=== PATIENT | male | born 1950 | race Caucasian/White ===

== ENCOUNTER 2017-06-17 08:13 | Emergency (ER) | payer MEDICARE, BC ==
[2017-06-17 08:29] VITALS: BP 141/82
--- NOTE | 2017-06-17 09:34 | EDM.PDOC ---
ED HPI GENERAL MEDICAL PROBLEM - General Chief Complaint: Lower Extremity Injury/Pain Stated Complaint: LEFT LEG PAIN Time Seen by Provider: 06/17/17 09:29 Source of Information: Reports: Patient History Limitations: Reports: No Limitations - History of Present Illness INITIAL COMMENTS - FREE TEXT/NARRATIVE: 66-year-old male presents to the ED with left calf pain. Patient states about 6 0630 hrs. yesterday morning while he was getting ready to go to work and walking out in his garage she developed sudden onset of severe pain left calf area. Pain is persistent since that time and is actually worsened by dorsiflexion of the foot or walking. He's barely able to walk up a stair because of the severity of the pain. Currently walking with the aid of one crutch. Denies any shortness of breath. No history of DVT in the past. Patient states that the leg and foot is not really swollen at all since the time of onset of pain. Onset: Sudden Onset Date: 06/16/17 Onset Time: 06:30 Duration: Day(s): Location: Reports: Lower Extremity, Left (Left calf primarily in the mid aspect. ) Quality: Reports: Ache, Burning, Other Severity: Moderate (Worsened by walking) Improves with: Reports: Rest Worsens with: Reports: Movement (Walking or dorsiflexing the ankle.) Context: Reports: Activity. 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: Reports: NSAIDS left calf Pain Score (Numeric/FACES): 2 - Related Data Allergies Allergy/AdvReac Type Severity Reaction Status Date / Time celecoxib [From Celebrex] Allergy unknown Verified 06/17/17 08:29 morphine Allergy unknown Verified 06/17/17 08:29 valdecoxib [From Bextra] Allergy unknown Verified 06/17/17 08:29 anesthetics Allergy unknown Uncoded 06/17/17 08:29 Home Meds: Home Meds Aspirin [Ecotrin] 81 mg PO DAILY 06/17/17 [History] Fluticasone/Salmeterol [Advair 250-50 Diskus] 1 each IH DAILY 06/17/17 [History] Hydrochlorothiazide [Hydrochlorothiazide] 12.5 mg PO DAILY 06/17/17 [History] Pantoprazole Sodium [Protonix] 40 mg PO DAILY 06/17/17 [History] Pramipexole [Mirapex] 0.25 mg PO BEDTIME 06/17/17 [History] Sertraline [Zoloft] 50 mg PO DAILY 06/17/17 [History] Simvastatin [Zocor] 80 mg PO BEDTIME 06/17/17 [History] Tamsulosin HCl [Flomax] 0.4 mg PO DAILY 06/17/17 [History] Past Medical History HEENT History: Reports: Hard of Hearing, Impaired Vision Cardiovascular History: Reports: High Cholesterol, Hypertension, [place] Genitourinary History: Reports: BPH, Prostate Disorder Psychiatric History: Reports: Depression - Past Surgical History Musculoskeletal Surgical History: Reports: Shoulder Surgery Social & Family History - Family History Family Medical History: Noncontributory - Tobacco Use Smoking Status *Q: Never Smoker Second Hand Smoke Exposure: No - Caffeine Use Caffeine Use: Reports: Coffee - Recreational Drug Use Recreational Drug Use: No - Living Situation & Occupation Living situation: Reports: Occupation: Employed Review of Systems - Review of Systems Review Of Systems: See Below Constitutional: Reports: No Symptoms Eyes: Reports: No Symptoms Ears: Reports: No Symptoms Nose: Reports: No Symptoms Mouth/Throat: Reports: No Symptoms Respiratory: Reports: No Symptoms Cardiovascular: Reports: No Symptoms GI/Abdominal: Reports: No Symptoms Genitourinary: Reports: No Symptoms Musculoskeletal: Reports: Other (Acute onset of left calf pain 24 hours ago.) Skin: Reports: No Symptoms Neurological: Reports: No Symptoms Psychiatric: Reports: No Symptoms ED EXAM, GENERAL - Physical Exam Exam: See Below Exam Limited By: No Limitations General Appearance: Alert, WD/WN, No Apparent Distress Eye Exam: Right Eye: Papilledema, Bilateral Eye: Normal Inspection Throat/Mouth: Normal Inspection, Normal Lips, Normal Teeth, Normal Oropharynx Head: Atraumatic, Normocephalic Neck: Normal Inspection, Supple, Non-Tender, Full Range of Motion Respiratory/Chest: No Respiratory Distress, Lungs Clear, Normal Breath Sounds, No Accessory Muscle Use, Chest Non-Tender Peripheral Pulses: 2+: Posterior Tibial (L), Posterior Tibial (R), Dorsalis Pedis (L), Dorsalis Pedis (R) GI/Abdominal: Normal Bowel Sounds, Soft, Non-Tender, No Organomegaly, No Distention Extremities: Other (Examination of the left lower extremity shows no dependent edema or swelling. Good dorsalis pedis pulse. Previous trauma to the dorsal foot appreciated with pinning of the third and fourth metatarsals and skin wound that is healed by secondary intention dorsal foot. He does have pain on dorsiflexion of the foot in the calf area. On palpation he has pain at the insertion of the medial gastrocnemius muscle and soleus muscle beginning of the Achilles tendon Pain is only present upon deep palpation in this area. ) Course - Vital Signs Last Recorded V/S: Last Vital Signs Temp 36.7 C 06/17/17 08:23 Pulse 78 06/17/17 08:23 Resp 18 06/17/17 08:23 BP 141/82 H 06/17/17 08:23 Pulse Ox 100 06/17/17 08:23 - Orders/Labs/Meds Labs: Laboratory Tests 06/17/17 Range/Units 09:28 D-Dimer, Quantitative 0.41 (0.19-0.59) mg/L - Radiology Interpretation Free Text/Narrative:: 58-year-old male presents to the ED with acute onset of left calf pain that is persisted since onset at 0630 hrs. yesterday morning. Patient is using a crutch to walk because of severe pain with walking or dorsiflexion of the ankle. On examination there is no edema of the leg to suggest DVT. However he is in the midline of the calf. I suspect he has a partial tear of the juncture of the medial gastrocnemius and soleus muscle posterior calf. However d-dimer and an doppler ultrasound of the extremity will be performed. - Re-Assessments/Exams Free Text/Narrative Re-Assessment/Exam: 06/17/17 11:03 Doppler ultrasound of the left lower extremity did not identify any evidence of deep venous thrombosis. D-dimer also returned in the normal range at 0.41. Therefore injuries appear to be musculoskeletal in origin with partial tear of the medial gastrocnemius muscle were joins onto the soleus muscle in the posterior calf. Therefore it is essentially time to heal as treatment. Elevate ice pack today one half hour to every 4 hours. Then start to put heat pack on the area tomorrow. For about one half hour out of every 4 hours. Just Aleve 2 tablets every 8 hours to relieve pain and inflammation until better. May continue to use the crutch for support of ambulation until area is feeling better. Departure - Departure Time of Disposition: 11:10 Disposition: Home, Self-Care 01 Condition: Fair Clinical Impression: Strain of gastrocnemius muscle of left lower extremity Qualifiers: Encounter type: initial encounter Qualified Code(s): S86.112A - Strain of other muscle(s) and tendon(s) of posterior muscle group at lower leg level, left leg, initial encounter - Discharge Information Instructions: Muscle Strain, [id number] Referrals: Lestre Heath MD [Primary Care Provider] - Forms: ED Department Discharge, ED Return to Work/School Form Additional Instructions: Evaluation in the emergency room today in regards to acute onset of left calf pain yesterday morning shortly after getting up for the day. Pain is persisted and making walking without a aid very difficult. Examination shows no swelling of the lower extremity to suggest a DVT. Pain is well localized to the medial belly of the gastrocnemius muscle were joins onto the soleus muscle and forms the Achilles tendon and the back of your calf. Her son was done and confirmed that there was no evidence of blood clot within the leg and similarly blood testing proved to be negative for any blood clot in the leg. It appears that this is a muscular strain and part of the muscle has pulled away from were joins onto the soleus muscle and is causing pain and localized swelling. Treatment is time to heal. Continue Gatorade as needed. Suggest Aleve 2 tablets every 8 hours for relief of pain and inflammation. Take the Aleve with food. Will give you a note to excuse her from the workplace today and tentatively will be able to return on Wednesday or Wednesday next week. As discussed ice pack to the area for one half hour every 4 hours today and then may use heat in the same fashion to the area tomorrow and the next day. His usually take about 7-10 days to resolve.
--- NOTE | 2017-06-17 12:00 | US ---
Left lower extremity deep venous ultrasound: Duplex and color flow imaging was obtained of the left common femoral, proximal greater saphenous, superficial femoral, popliteal, posterior tibial and peroneal veins. Right common femoral vein also was evaluated. Findings: Normal phasic flow, augmentation and compression are seen. No ultrasound abnormality is seen within the posterior calf. Impression: 1. No evidence of deep venous thrombosis seen within the left lower extremity or within the right common femoral vein. 2. No ultrasound finding is seen within the posterior calf. Diagnostic code #1
== END 2017-06-17 11:20 | disposition home or self-care (01) ==
LOC: JD.ED 08:13
DX: S86.112A Strain of other muscle(s) and tendon(s) of posterior muscle group at lower leg level, left leg, initial encounter (principal); I10 Essential (primary) hypertension; E78.00 Pure hypercholesterolemia, unspecified; F32.9 Major depressive disorder, single episode, unspecified; Z79.82 Long term (current) use of aspirin; Z79.899 Other long term (current) drug therapy; Z88.5 Allergy status to narcotic agent; Z88.6 Allergy status to analgesic agent; Z88.8 Allergy status to other drugs, medicaments and biological substances; X58.XXXA Exposure to other specified factors, initial encounter; Y92.015 Private garage of single-family (private) house as the place of occurrence of the external cause; Y93.01 Activity, walking, marching and hiking
CPT/HCPCS: 36415; 85379; 93971-26-LT; 93971-LT; 99282; 99284-25

== ENCOUNTER 2017-07-05 08:02 | Day surgery (SDC) | payer MEDICARE, BC ==
[~2017-07-05 08:02] MED LIST: Lactated Ringers 1,000 ML IV SCH; Lidocaine 1%/Sod Bicarbonate in NS 8.4% 1 ML Syringe IV PRN; Sodium Chloride 0.9% 10 ML Syringe FLUSH PRN
--- NOTE | 2017-07-05 09:06 | PCM.PREANE ---
Preanesthetic Assessment - Anesthesia/Transfusion/Family Hx Anesthesia History: Prior Anesthesia Reaction (nausea) Family History of Anesthesia Reaction: No Transfusion History: Prior Transfusion Without Reaction - Review of Systems General: No Symptoms Pulmonary: No Symptoms Cardiovascular: No Symptoms Gastrointestinal: No Symptoms Neurological: Numbness (toes) Other: Reports: Easy Bleeding, Easy Bruising - Physical Assessment NPO Status Date: 07/04/17 NPO Status Time: 01:00 Pulse: 64 O2 Sat by Pulse Oximetry: 96 Respiratory Rate: 16 Blood Pressure: 120/78 Temperature: 36.8 C Vital Signs: Last Vital Signs Temp 36.8 C 07/05/17 08:34 Pulse 64 07/05/17 08:34 Resp 16 07/05/17 08:34 BP 120/78 07/05/17 08:34 Pulse Ox 96 07/05/17 08:34 Height: 1.73 m Weight: 73.346 kg ASA Class: 3 Mental Status: Alert & Oriented x3 Airway Class: Mallampati = 2 Dentition: Reports: Normal Dentition, [place](s) Thyro-Mental Finger Breadths: 2 Mouth Opening Finger Breadths: 2 ROM/Head Extension: Full Lungs: Clear to Auscultation, Normal Respiratory Effort Cardiovascular: Regular Rate, Regular Rhythm - Lab Values: on chart - Imaging/EKG Impressions: Sinus Jun on chart - Allergies Allergies/Adverse Reactions: Allergies Allergy/AdvReac Type Severity Reaction Status Date / Time celecoxib [From Celebrex] Allergy unknown Verified 06/17/17 08:29 morphine Allergy unknown Verified 06/17/17 08:29 valdecoxib [From Bextra] Allergy unknown Verified 06/17/17 08:29 anesthetics Allergy unknown Uncoded 06/17/17 08:29 - Acknowledgements Anesthesia Type Planned: MAC Pt an Appropriate Candidate for the Planned Anesthesia: Yes Alternatives and Risks of Anesthesia Discussed w Pt/Guardian: Yes Pt/Guardian Understands and Agrees with Anesthesia Plan: Yes PreAnesthesia Questionnaire HEENT History: Reports: Hard of Hearing, Impaired Vision Other HEENT History: tinnitus, pterygium uvulophanynegealpoasty, tmj surgery Cardiovascular History: Reports: High Cholesterol, Hypertension, [place] ("four years ago with a stent") Other Cardiovascular History: heart cath sten, arteriosclerotic heart disease Respiratory History: Reports: Sleep Apnea Gastrointestinal History: Reports: Gastritis, GERD Other Gastrointestinal History: gastritic ulcers, haiatal hernia, dysphagia, constipation epigastic paink abdominal pain gallstoone, hep c, colonoscopy, egd , gastrectomy Genitourinary History: Reports: BPH, Prostate Disorder Other Genitourinary History: prostate issues causing bladder trouble. Psychiatric History: Reports: Depression Other Psychiatric History: fatique Other Endocrine/Metabolic History: cholinsetrsanse deficiency Other Hematologic History: bruises easily - Past Surgical History Cardiovascular Surgical History: Reports: Coronary Artery Stent Other Musculoskeletal Surgeries/Procedures:: rt femur fx, left shulder bony spur excison, foot surgery left knee meniscus repair, ulnar nerve transpostion, trigger finger release. - SUBSTANCE USE Smoking Status *Q: Never Smoker Second Hand Smoke Exposure: No Days Per Week of Alcohol Use: 1 Number of Drinks Per Day: 0 Total Drinks Per Week: 0 Recreational Drug Use History: No - HOME MEDS Home Medications: Home Meds Aspirin [Ecotrin] 81 mg PO DAILY 06/17/17 [History] Fluticasone/Salmeterol [Advair 250-50 Diskus] 1 each IH DAILY 06/17/17 [History] Hydrochlorothiazide [Hydrochlorothiazide] 12.5 mg PO DAILY 06/17/17 [History] Pantoprazole Sodium [Protonix] 40 mg PO DAILY 06/17/17 [History] Pramipexole [Mirapex] 0.25 mg PO BEDTIME 06/17/17 [History] Sertraline [Zoloft] 50 mg PO DAILY 06/17/17 [History] Simvastatin [Zocor] 80 mg PO BEDTIME 06/17/17 [History] Tamsulosin HCl [Flomax] 0.4 mg PO DAILY 06/17/17 [History] - CURRENT (IN HOUSE) MEDS Current Meds: Current Medications Lactated Ringer's (Ringers, Lactated) 1,000 mls @ 125 mls/hr IV ASDIRECTED SAHRA Stop: 07/05/17 23:00 Lidocaine/Sodium Bicarbonate (Buffered Lidocaine 1% In Ns 8.4%) 0.25 ml IV ONETIME PRN PRN Reason: Prior to IV Start Stop: 07/05/17 18:00 Sodium Chloride (Saline Flush) 10 ml FLUSH ASDIRECTED PRN PRN Reason: Keep Vein Open Stop: 07/05/17 18:00
[2017-07-05] MEDS ORDERED: Propofol 200 MG/20 ML SDV ONE ×2 (09:11→10:22)
[2017-07-05] MEDS ORDERED: Lidocaine 1% 4 ML ONE (09:14)
[2017-07-05] MEDS ORDERED: Lactated Ringers 1,000 ML ONE (10:05)
--- NOTE | 2017-07-05 10:44 | PCM.OPNOTE ---
- General Post-Op/Procedure Note Date of Surgery/Procedure: 07/05/17 Operative Procedure(s): egd with bx and colonosocopy to transverse colon Pre Op Diagnosis: GERd/change in bowel habits Post-Op Diagnosis: Same Anesthesia Technique: MAC Primary Surgeon: Sanjay Bush EBL in mLs: 0 Complications: None Condition: Good
[2017-07-05 10:48] VITALS: BP 138/92
--- NOTE | 2017-07-05 10:52 | PCM48HPAN ---
Post Anesthesia Note - EVALUATION WITHIN 48HRS OF ANESTHETIC Vital Signs in Normal Range: Yes Patient Participated in Evaluation: Yes Respiratory Function Stable: Yes Airway Patent: Yes Cardiovascular Function Stable: Yes Hydration Status Stable: Yes Pain Control Satisfactory: Yes Nausea and Vomiting Control Satisfactory: Yes Mental Status Recovered: Yes
--- NOTE | 2017-07-06 12:22 | OR ---
DATE OF OPERATION: 07/05/2017 SURGEON: Sanjay Bush MD PREOPERATIVE DIAGNOSIS: Change in bowel habits. POSTOPERATIVE DIAGNOSIS: Change in bowel habits. OPERATION PERFORMED: Colonoscopy of the transverse colon. FINDINGS: Incomplete prep with stool making it inadvisable to advance further. Unable to irrigate or suck out the stool particles at this level. Did not show any angiodysplasias, neoplasias, or large tumor masses or ulcerations in the transverse colon, descending colon, sigmoid colon, and rectum. ANESTHESIA: IV sedation. DESCRIPTION OF PROCEDURE: The patient was taken to the operating room, placed in the supine position having been connected to monitoring equipment, now having undergone upper GI endoscopy, the IV sedation continued for colonoscopy. The patient was placed in left lateral position. Perianal area was inspected, it was normal. Rectal exam showed good sphincter tone. A video Olympus colonoscope was then introduced into the rectum and threaded up without problem to the transverse colon until fecal matter was encountered. Attempts to irrigate and suck this out were unsuccessful, and advancement of the scope was stopped at this point and then slowly withdrawn showing the transverse colon, descending colon, sigmoid colon, and rectum. The patient tolerated the procedure and was sent to the recovery room in a stable condition and will be followed up in the clinic. ESTIMATED BLOOD LOSS: MMODAL /[id number]
--- NOTE | 2017-07-08 07:58 | OR ---
DATE OF OPERATION: 07/05/2017 SURGEON: Sanjay Bush MD PREOPERATIVE DIAGNOSIS: Gastroesophageal reflux disease. POSTOPERATIVE DIAGNOSIS: Gastroesophageal reflux disease. OPERATION PERFORMED: EGD with biopsy. ANESTHESIA: IV sedation. FINDINGS: Upper GI endoscopy demonstrating the gastric pouch with a gastrojejunostomy. The 2 limbs of the jejunostomy are widely open and patent. The gastric pouch looks unremarkable. There is free reflux from the jejunum into the stomach. 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 GE junction did not show any acute pathology. Biopsies were taken of this. There were some petechiae in the upper esophagus, and biopsies were taken of the proximal esophagus at 30 cm and then at 20 cm. DESCRIPTION OF PROCEDURE: The patient was taken to the endoscopy room, placed in a supine position, connected to monitoring equipment, given IV sedation, and placed in the left lateral position. A bite block was inserted, and video Olympus gastroscope placed in the posterior oropharynx. Under direct vision, threaded past the cricopharyngeus down the esophagus into the gastric pouch which was viewed and was biopsied. The scope passed into both limbs of the gastrojejunostomy and then a J-maneuver was performed. The scope was withdrawn. The GE junction which was biopsied did not show any acute pathology. The proximal esophagus showed some petechiae, and this was biopsied at 30 and then at 20 cm. The patient tolerated the procedure and IV sedation continued for colonoscopy. ESTIMATED BLOOD LOSS: MMODAL /[id number]
== END 2017-07-05 11:45 | disposition home or self-care (01) ==
LOC: JD.SDS 08:02
PROVIDERS: ATTEND Surgery
DX: K21.9 Gastro-esophageal reflux disease without esophagitis (principal); K59.00 Constipation, unspecified; R10.13 Epigastric pain; R10.11 Right upper quadrant pain; R63.4 Abnormal weight loss; B18.2 Chronic viral hepatitis C; E78.00 Pure hypercholesterolemia, unspecified; I10 Essential (primary) hypertension; I25.10 Atherosclerotic heart disease of native coronary artery without angina pectoris; G47.30 Sleep apnea, unspecified; N40.0 Benign prostatic hyperplasia without lower urinary tract symptoms; F32.9 Major depressive disorder, single episode, unspecified; H93.19 Tinnitus, unspecified ear; Z83.71 Family history of colonic polyps; Z79.82 Long term (current) use of aspirin; Z79.899 Other long term (current) drug therapy; Z88.4 Allergy status to anesthetic agent; Z88.5 Allergy status to narcotic agent; Z88.8 Allergy status to other drugs, medicaments and biological substances; Z90.3 Acquired absence of stomach [part of]; Z95.818 Presence of other cardiac implants and grafts; Z98.890 Other specified postprocedural states; Z99.89 Dependence on other enabling machines and devices
CPT/HCPCS: 45378; J7120; 00810; 88305; J2704

== ENCOUNTER 2020-10-23 13:21 | Emergency (ER) | payer MEDICARE, BC ==
--- NOTE | 2020-10-23 14:03 | EDM.PDOC ---
ED HPI GENERAL MEDICAL PROBLEM - General Chief Complaint: Chest Pain Stated Complaint: SOB/LIGHTHEADED Time Seen by Provider: 10/23/20 13:59 Source of Information: Reports: Patient History Limitations: Reports: No Limitations - History of Present Illness INITIAL COMMENTS - FREE TEXT/NARRATIVE: 70-year-old male presents to the ED for evaluation of intermittent chest pressure discomfort radiating from the left precordium to occasionally the right precordium and central chest. He appreciates this is worse on exertion. Patient has known history of coronary disease with a myocardial infarction approximately 6 to 7 years ago requiring a stent placement. View the old records and it was in December 112013. Appears that ECG showed a proximal left coronary artery occlusion involving the entire anterior septal wall and lateral wall. He ended up with 1 stent placement presumably in the left coronary artery. Apparently he was flown to [facility] in [place] per he licopter at the time of his [place]. He states for the last 5 to 8 days he is appreciated some dyspnea on minimal exertion such as going out to get the mail. No true orthopnea. He had some mild chest pain pressure discomfort last evening again with exertion. This morning he appreciated chest discomfort at 0730 hrs. again while working. At 0830 hrs. he took a nitroglycerin tablet which he is rarely done in the past and it did provide transient relief of the chest discomfort. There is been no radiation of the chest pain other than across his anterior chest. He not into his back neck or upper extremities. At present he is pain-free since he is not moving. However says he starts to walk he developed central chest discomfort. Denies cough or sputum production. He did take his 1 baby aspirin per usual this morning. Denies nausea or vomiting. Onset: Today Onset Date: 10/23/20 Onset Time: 07:30 Duration: Hour(s):, Waxing/Waning Location: Reports: Chest (Central chest discomfort) Quality: Reports: Ache ( worse with minimal exertion such as walking.), Pressure Severity: Moderate (Pain was intense is a 6 out of 10 today.) Improves with: Reports: Rest, Other (Entered glycerin tablet at 0 830 relieved his chest pressure discomfort transiently for about half an hour) Worsens with: Reports: Movement (Chest pressure discomfort worsens with walking suggesting significant unstable angina.) Context: Denies: Activity, Exercise, Lifting, Sick Contact, Trauma, Other Associated Symptoms: Reports: Chest Pain (On exertion), 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) (Nitroglycerin tablet earlier this morning that he took himself.) Chest Pain Score (Numeric/FACES): 3 - Related Data Allergies Allergy/AdvReac Type Severity Reaction Status Date / Time celecoxib [From Celebrex] Allergy unknown Verified 10/23/20 13:29 morphine Allergy unknown Verified 10/23/20 13:29 valdecoxib [From Bextra] Allergy unknown Verified 10/23/20 13:29 anesthetics Allergy unknown Uncoded 10/23/20 13:29 Home Meds: Home Meds Aspirin [Ecotrin] 81 mg PO DAILY 06/17/17 [History] Tamsulosin HCl [Flomax] 0.4 mg PO DAILY 06/17/17 [History] hydroCHLOROthiazide [Hydrochlorothiazide] 12.5 mg PO DAILY 06/17/17 [History] Fluticasone Propionate [Flonase Allergy Relief] 2 spray NASBOTH ASDIRECTED PRN 10/23/20 [History] Montelukast [Singulair] 10 mg PO BEDTIME 10/23/20 [History] Rosuvastatin Calcium [Crestor] 5 mg PO BEDTIME 10/23/20 [History] armodafiniL [Armodafinil] 100 mg PO DAILY 10/23/20 [History] Past Medical History HEENT History: Reports: Allergic Rhinitis, Hard of Hearing, Impaired Vision Other HEENT History: tinnitus, pterygium uvulophanynegealpoasty, tmj surgery Cardiovascular History: Reports: High Cholesterol, Hypertension, [place] Other Cardiovascular History: heart cath sten, arteriosclerotic heart disease Respiratory History: Reports: Sleep Apnea Other Respiratory History: wears C-PAP. Gastrointestinal History: Reports: Gastritis, GERD Other Gastrointestinal History: gastritic ulcers, haiatal hernia, dysphagia, constipation epigastic paink abdominal pain gallstoone, hep c, colonoscopy, egd, gastrectomy Genitourinary History: Reports: BPH, Prostate Disorder Other Genitourinary History: prostate issues causing bladder trouble. Musculoskeletal History: Reports: Fracture Psychiatric History: Reports: Depression Other Psychiatric History: fatique Other Endocrine/Metabolic History: cholinsetrsanse deficiency Hematologic History: Reports: Blood Transfusion(s) Other Hematologic History: bruises easily - Infectious Disease History Infectious Disease History: Reports: Chicken Pox, Measles, Mumps - Past Surgical History Cardiovascular Surgical History: Reports: Coronary Artery Stent GI Surgical History: Reports: Colonoscopy, EGD, Other (See Below) Other GI Surgeries/Procedures: gastric bypass (similar) for gastric ulcers not for wt loss. Musculoskeletal Surgical History: Reports: Shoulder Surgery Other Musculoskeletal Surgeries/Procedures:: rt femur fx, left shulder bony spur excison, foot surgery left knee meniscus repair, ulnar nerve transpostion, trigger finger release. Social & Family History - Family History Family Medical History: No Pertinent Family History - Tobacco Use Tobacco Use Status *Q: Never Tobacco User Second Hand Smoke Exposure: No - Caffeine Use Caffeine Use: Reports: Coffee, Soda - Recreational Drug Use Recreational Drug Use: No - Living Situation & Occupation Living situation: Reports: Occupation: Employed ED ROS GENERAL - Review of Systems Review Of Systems: See Below Constitutional: Denies: Fever, Chills, Malaise, Weakness, Fatigue, Decreased Appetite, Weight Loss HEENT: Reports: Glasses Respiratory: Reports: Shortness of Breath. Denies: Wheezing, Pleuritic Chest Pain, Cough, Sputum, Hemoptysis Cardiovascular: Reports: Chest Pain (Anginal chest pressure discomfort rating across left precordium to the right precordium), Dyspnea on Exertion (Dyspnea on exertion particular the last 4 to 5 days), Lightheadedness. Denies: Blood Pressure Problem (.), Claudication, Orthopnea Endocrine: Reports: Fatigue GI/Abdominal: Reports: Other (Patient does have a significant problem with GERD. He has had previous peptic ulcer disease requiring a Billroth II type surgery in 1977.) : Reports: Frequency, Other (Nocturia usually x2. Known BPH.) Musculoskeletal: Reports: Joint Pain Skin: Reports: No Symptoms (Hips lower back neck at times.) Neurological: Reports: Dizziness (Times has felt a little dizzy lightheaded on exertion) Psychiatric: Reports: No Symptoms Hematologic/Lymphatic: Reports: No Symptoms Immunologic: Reports: No Symptoms ED EXAM, GENERAL - Physical Exam Exam: See Below Exam Limited By: No Limitations General Appearance: Alert, WD/WN, No Apparent Distress, Other (Temperature is 36.6 degrees. Heart rate is 77 and sinus on the monitor. Frequent PVCs are appreciated respiratory is 20 with O2 sats of 97% room air BP 136/81.) Eye Exam: Bilateral Eye: Normal Inspection, PERRL (No scleral icterus or ble pharal pallor) Throat/Mouth: Normal Inspection, Normal Lips, Normal Oropharynx Head: Atraumatic, Normocephalic Neck: Normal Inspection, Supple, Non-Tender, Full Range of Motion. No: Carotid Bruit, Lymphadenopathy (L), Lymphadenopathy (R) Respiratory/Chest: No Respiratory Distress, Lungs Clear, Normal Breath Sounds, No Accessory Muscle Use Cardiovascular: Normal Peripheral Pulses, No Edema, No Gallop, No Murmur, No Rub, Irregularly Irregular Peripheral Pulses: 2+: Carotid (L), Carotid (R), Posterior Tibial (L), Posterior Tibial (R), Dorsalis Pedis (L), Dorsalis Pedis (R) GI/Abdominal: Normal Bowel Sounds, Soft, Non-Tender, No Organomegaly, No Abnormal Bruit, No Mass, Pelvis Stable, Other (Multiple surgical scars) Back Exam: Normal Inspection, Full Range of Motion. No: CVA Tenderness (L), CVA Tenderness (R) Extremities: Normal Inspection, Normal Range of Motion, Non-Tender, No Pedal Edema Neurological: Alert, Oriented, CN II-XII Intact, Normal Cognition, Normal Gait Psychiatric: Normal Affect, Normal Mood Skin Exam: Warm, Dry, Intact, Normal Color, No Rash #1 Interpretation EKG Date: 10/23/20 Time: 13:27 Rhythm: NSR Rate (Beats/Min): 91 (Frequent unifocal PVCs.) [place]: LAD-Left [place] Deviation (-22 degrees) P-Wave: Enlarged (Left atrial hypertrophy) QRS: Other (Early R wave transition consider right ventricular. To be/septal hypertrophy pattern.) ST-T: Other (T wave flattening aVL nonspecific finding) QT: Prolonged (Mildly prolonged) EKG Interpretation Comments: Abnormal ECG with no signs of acute ischemic changes Course - Vital Signs Last Recorded V/S: Last Vital Signs Temp 36.2 C 10/23/20 16:20 Pulse 60 10/23/20 16:20 Resp 16 10/23/20 16:20 BP 158/95 H 10/23/20 16:20 Pulse Ox 99 10/23/20 16:20 - Orders/Labs/Meds Orders: Active Orders 24 hr Category Date Time Status EKG 12 Lead [EKG Documentation Completion] [RC] STAT Care 10/23/20 13:57 Active CBC W/O DIFF,HEMOGRAM [HEME] MOTH@0700 Lab 10/24/20 07:00 Ordered CBC W/O DIFF,HEMOGRAM [HEME] MOTH@0700 Lab 10/28/20 07:00 Ordered CBC W/O DIFF,HEMOGRAM [HEME] MOTH@0700 Lab 10/31/20 07:00 Ordered CBC W/O DIFF,HEMOGRAM [HEME] MOTH@0700 Lab 11/04/20 07:00 Ordered CBC W/O DIFF,HEMOGRAM [HEME] MOTH@0700 Lab 11/07/20 07:00 Ordered CBC W/O DIFF,HEMOGRAM [HEME] MOTH@0700 Lab 11/11/20 07:00 Ordered Heparin Sodium/D5W [Heparin 25,000 Units in D5W 500 ML] Med 10/23/20 16:15 Active 25,000 units in 500 ml IV ASDIRECTED Nitroglycerin/D5W [Nitroglycerin 25 MG/D5W 250 ML] Med 10/23/20 16:15 Active 25 mg in 250 ml IV ASDIRECTED Sodium Chloride 0.9% [Normal Saline] 1,000 ml Med 10/23/20 14:15 Active IV ASDIRECTED Medication Orders Sodium Chloride (Normal Saline) 1,000 mls @ 100 mls/hr IV ASDIRECTED [facility] Last Admin: 10/23/20 14:27 Dose: 100 mls/hr Documented by: TAMEKA Heparin Sodium/Dextrose (Heparin 25,000 Units In D5w 500 Ml) 25,000 units in 500 mls @ 20 mls/hr IV ASDIRECTED [facility] Last Admin: 10/23/20 16:39 Dose: 1,000 units/hr, 20 mls/hr Documented by: TAMEKA Cosigned by: ULISES Nitroglycerin/Dextrose (Nitroglycerin 25 Mg/D5w 250 Ml) 25 mg in 250 mls @ 6 mls/hr IV ASDIRECTED [facility] Last Admin: 10/23/20 16:29 Dose: 10 mcg/min, 6 mls/hr Documented by: TAMEKA Labs: Laboratory Tests 10/23/20 10/23/20 10/23/20 Range/Units 13:27 13:27 13:27 WBC 4.46 (4.23-9.07) K/mm3 RBC 5.34 (4.63-6.08) M/mm3 Hgb 14.7 (13.7-17.5) gm/dl Hct 45.0 (40.1-51.0) % MCV 84.3 (79.0-92.2) fl MCH 27.5 (25.7-32.2) pg MCHC 32.7 (32.2-35.5) g/dl RDW Std Deviation 40.9 (35.1-43.9) fL Plt Count 204 (163-337) K/mm3 MPV 10.5 (9.4-12.3) fl Neut % (Auto) 60.6 (34.0-67.9) % Lymph % (Auto) 26.7 (21.8-53.1) % [place] % (Auto) 10.1 (5.3-12.2) % Eos % (Auto) 2.2 (0.8-7.0) Baso % (Auto) 0.4 (0.1-1.2) % Neut # (Auto) 2.70 (1.78-5.38) K/mm3 Lymph # (Auto) 1.19 L (1.32-3.57) K/mm3 [place] # (Auto) 0.45 (0.30-0.82) K/mm3 Eos # (Auto) 0.10 (0.04-0.54) K/mm3 Baso # (Auto) 0.02 (0.01-0.08) K/mm3 PT 12.6 H (9.7-12.0) SECONDS INR 1.18 APTT 27.1 (21.7-31.4) SECONDS Sodium 139 (136-145) mEq/L Potassium 3.9 (3.5-5.1) mEq/L Chloride 103 (98-107) mEq/L Carbon Dioxide 26 (21-32) mEq/L Anion Gap 13.9 (5-15) BUN 22 H (7-18) mg/dL Creatinine 0.9 (0.7-1.3) mg/dL Est Cr Clr Drug Dosing 71.78 mL/min Estimated GFR (MDRD) > 60 (>60) mL/min BUN/Creatinine Ratio 24.4 H (14-18) Glucose 197 H (83-115) mg/dL Calcium 8.4 L (8.5-10.1) mg/dL Magnesium 2.1 (1.8-2.4) mg/dl Total Bilirubin 0.6 (0.2-1.0) mg/dL AST 21 (15-37) U/L ALT 30 (16-63) U/L Alkaline Phosphatase 134 H (46-116) U/L CK-MB (CK-2) 3.1 (0-3.6) ng/ml Troponin I < 0.017 (0.00-0.056) ng/mL NT-Pro-B Natriuret Pep (0-125) pg/mL Total Protein 6.7 (6.4-8.2) g/dl Albumin 3.9 (3.4-5.0) g/dl Globulin 2.8 gm/dL Albumin/Globulin Ratio 1.4 (1-2) SARS-CoV-2 RNA (FRANSISCA) (NEGATIVE) 10/23/20 10/23/20 Range/Units 13:27 14:58 WBC (4.23-9.07) K/mm3 RBC (4.63-6.08) M/mm3 Hgb (13.7-17.5) gm/dl Hct (40.1-51.0) % MCV (79.0-92.2) fl MCH (25.7-32.2) pg MCHC (32.2-35.5) g/dl RDW Std Deviation (35.1-43.9) fL Plt Count (163-337) K/mm3 MPV (9.4-12.3) fl Neut % (Auto) (34.0-67.9) % Lymph % (Auto) (21.8-53.1) % [place] % (Auto) (5.3-12.2) % Eos % (Auto) (0.8-7.0) Baso % (Auto) (0.1-1.2) % Neut # (Auto) (1.78-5.38) K/mm3 Lymph # (Auto) (1.32-3.57) K/mm3 [place] # (Auto) (0.30-0.82) K/mm3 Eos # (Auto) (0.04-0.54) K/mm3 Baso # (Auto) (0.01-0.08) K/mm3 PT (9.7-12.0) SECONDS INR APTT (21.7-31.4) SECONDS Sodium (136-145) mEq/L Potassium (3.5-5.1) mEq/L Chloride (98-107) mEq/L Carbon Dioxide (21-32) mEq/L Anion Gap (5-15) BUN (7-18) mg/dL Creatinine (0.7-1.3) mg/dL Est Cr Clr Drug Dosing mL/min Estimated GFR (MDRD) (>60) mL/min BUN/Creatinine Ratio (14-18) Glucose (83-115) mg/dL Calcium (8.5-10.1) mg/dL Magnesium (1.8-2.4) mg/dl Total Bilirubin (0.2-1.0) mg/dL AST (15-37) U/L ALT (16-63) U/L Alkaline Phosphatase (46-116) U/L CK-MB (CK-2) (0-3.6) ng/ml Troponin I (0.00-0.056) ng/mL NT-Pro-B Natriuret Pep 38 (0-125) pg/mL Total Protein (6.4-8.2) g/dl Albumin (3.4-5.0) g/dl Globulin gm/dL Albumin/Globulin Ratio (1-2) SARS-CoV-2 RNA (FRANSISCA) Negative (NEGATIVE) Meds: Medications Generic Name Dose Route Start Last Admin Trade Name Freq PRN Reason Stop Dose Admin Sodium Chloride 1,000 mls @ 100 mls/hr 10/23/20 14:15 10/23/20 14:27 Normal Saline IV 100 mls/hr ASDIRECTED SAHRA Administration Heparin Sodium/Dextrose 25,000 units in 500 mls @ 20 mls/hr 10/23/20 16:15 10/23/20 16:39 Heparin 25,000 Units In D5w 500 Ml IV 1,000 units/hr ASDIRECTED SAHRA 20 mls/hr Administration 1,000 UNITS/HR Nitroglycerin/Dextrose 25 mg in 250 mls @ 6 mls/hr 10/23/20 16:15 10/23/20 16:29 Nitroglycerin 25 Mg/D5w 250 Ml IV 10 mcg/min ASDIRECTED SAHRA 6 mls/hr Administration 10 MCG/MIN Discontinued Medications Generic Name Dose Route Start Last Admin Trade Name Freq PRN Reason Stop Dose Admin Aspirin 324 mg 10/23/20 14:15 10/23/20 14:28 Aspirin 81 Mg Tab.Chew PO 10/23/20 14:16 324 mg ONETIME ONE Administration Heparin Sodium (Porcine) 4,000 units 10/23/20 16:06 10/23/20 16:23 Heparin Sodium 5,000 Units/Ml Vial IVPUSH 10/23/20 16:07 4,000 units .BOLUS ONE Administration Heparin Sodium (Porcine) 4,000 units 10/23/20 16:07 10/23/20 16:37 Heparin Sodium 5,000 Units/Ml Vial IVPUSH 10/23/20 16:08 Not Given .BOLUS ONE - Radiology Interpretation Free Text/Narrative:: 70-year-old male presents to the ED with gradually worsening chest pressure discomfort primarily left precordium radiating across to the right precordium on exertion. Associated dyspnea starting about 5 to 6 days ago on minimal exertion such as walking out to get the mail. Exam walking or trying to do mild work seems to be making the chest pain come on and at rest it will go away completely. Improved with a single nitroglycerin tablet at 0830 hrs. this morning transiently for about a half an hour. Patient has a known history of coronary disease suffering a anteroseptal myocardial infarction in December 112013 with involvement of the lateral wall. He was flown to [facility] in [place] where he had a stent placed presumably in the proximal left coronary artery. He has done well since that time. History suggest developing unstable angina. Pain is coming on with less and less exertion even over the last 2 days. Plan cardiac work-up to be completed. This will include a COVID- 19 screen although he has completed both vaccinations for COVID-19 illness. Given aspirin 324 mg chewed. At present he is pain-free and nitroglycerin will be withheld. - Re-Assessments/Exams Free Text/Narrative Re-Assessment/Exam: 10/23/20 15:05 portable chest x-ray has been completed. Heart has a mild left ventricular configuration slight tortuosity of the thoracic aorta is appreciated. Lungs are clear with no acute parenchymal changes. No acute abnormalities appreciated. Surgical clips are noted around the gastroesophageal junction from previous gastric surgery. Free Text/Narrative Re-Assessment/Exam: 10/23/20 15:18 White count is normal at 4.46. The differential reveals 60% neutrophils and 27% lymphocytes. Hemoglobin is 14.7 with hematocrit of 45.0 MCV is normal at 84.3 platelet count 204,000. PT is 12.6 with an INR of 1.18 and a PTT of 27.1. Sodium 139 with a potassium of 3.9. Chloride 103 with a bicarb of 26. Anion gap is 13.9. BUN is pending. Creatinine is 0.9 and GFR is greater than 60. Glucose is 197 elevated. Calcium is 8.4 with a magnesium of 2.1. Bilirubin is 0.6. ALT is 30 AST is not available alkaline phosphatase slightly elevated 134. CK-MB fraction is 3.1 troponin I is pending. BNP is 38 total protein 6.7 albumin fraction 3.9. 10/23/20 15:43 BUN is 22. Calcium is 8.4. Magnesium is 2.1 AST is 21. Troponin I is less than 0.017. My plan will therefore to be speak with sfdc architect at [facility] in [place] guards to his highly unstable angina which is progressed fairly rapidly suggesting a high-grade lesion. 10/23/20 16:00: I have spoken with Dr. Mullins on-call sfdc architect at [facility] in [place] and discussed the case with him. He agrees this is highly unstable angina and the patient should be admitted with a view to urgent angiography. I subsequently spoke to --on-call hospitalist who is accepted care of this patient and will do his admission. Unfortunately there is no ambulance service availability at this time and will have to wait till 1800 hrs. to provide transport. Patient will be placed on heparin drip at 1000 units an hour. He will be given 4000 units IV bolus. He will also be placed on nitroglycerin drip at 10 mcg/min. Current blood pressure is 159 /90. 10/23/20 18:00 Ambulance will be here shortly to provide transport to [facility] in [place]. Delay in transport was due to in availability of ambulance transport. Patient has remained stable with a blood pressure of 121/89 at present. His chest pain remains 0. O2 sats are 100% on room air Departure - Departure Time of Disposition: 18:01 Disposition: DC/Tfer to [facility] 02 Reason for Transfer *Q: Other Condition: Fair Clinical Impression: Coronary artery disease with unstable angina pectoris Qualifiers: Coronary Disease-Associated Artery/Lesion type: unspecified vessel or lesion type [place] vs. transplanted heart: [place] heart Qualified Code(s): I25.110 - Atherosclerotic heart disease of [place] coronary artery with unstable angina pectoris Referrals: Lester Heath MD [Primary Care Provider] - Forms: ED Department Discharge Additional Instructions: Patient to be transferred to [facility] in [place] for cardiology consultation and treatment. Patient has developed a rapidly progressive unstable angina or angina equivalent with shortness of breath on minimal exertion and chest pain when doing minor work over the last 5 days. Patient suffered a large anteroseptal myocardial infarction in December 112013 requiring emergency treatment at [facility] with 1 stent placed presumably in the proximal left coronary artery. He has done well up until the last 4 to 5 days. Sepsis Event Note (ED) - Evaluation Sepsis Screening Result: No Definite Risk - Focused Exam Vital Signs: Vital Signs Temp Pulse Resp BP Pulse Ox 10/23/20 16:20 36.2 C 60 16 158/95 H 99 10/23/20 13:25 36.6 C 77 20 136/81 97 - My Orders Last 24 Hours: My Active Orders 10/23/20 14:15 Sodium Chloride 0.9% [Normal Saline] 1,000 ml IV ASDIRECTED 10/23/20 16:15 Heparin Sodium/D5W [Heparin 25,000 Units in D5W 500 ML] 25,000 units in 500 ml IV ASDIRECTED Nitroglycerin/D5W [Nitroglycerin 25 MG/D5W 250 ML] 25 mg in 250 ml IV ASDIRECTED 10/24/20 07:00 CBC W/O DIFF,HEMOGRAM [HEME] MOTH@0700 10/28/20 07:00 CBC W/O DIFF,HEMOGRAM [HEME] MOTH@0700 10/31/20 07:00 CBC W/O DIFF,HEMOGRAM [HEME] MOTH@00 11/04/20 07:00 CBC W/O DIFF,HEMOGRAM [HEME] MOTH@0700 11/07/20 07:00 CBC W/O DIFF,HEMOGRAM [HEME] MOTH@0700 11/11/20 07:00 CBC W/O DIFF,HEMOGRAM [HEME] MOTH@0700 - Assessment/Plan Last 24 Hours: My Active Orders 10/23/20 14:15 Sodium Chloride 0.9% [Normal Saline] 1,000 ml IV ASDIRECTED 10/23/20 16:15 Heparin Sodium/D5W [Heparin 25,000 Units in D5W 500 ML] 25,000 units in 500 ml IV ASDIRECTED Nitroglycerin/D5W [Nitroglycerin 25 MG/D5W 250 ML] 25 mg in 250 ml IV ASDIRECTED 10/24/20 07:00 CBC W/O DIFF,HEMOGRAM [HEME] MOTH@69910/28/20 07:00 CBC W/O DIFF,HEMOGRAM [HEME] MOTH@69910/31/20 07:00 CBC W/O DIFF,HEMOGRAM [HEME] MOTH@69911/04/20 07:00 CBC W/O DIFF,HEMOGRAM [HEME] MOTH@0711/07/20 07:00 CBC W/O DIFF,HEMOGRAM [HEME] MOTH@0711/11/20 07:00 CBC W/O DIFF,HEMOGRAM [HEME] MOTH@699
[2020-10-23] MEDS ORDERED: Aspirin 81 MG Tab.Chew PO ONE (14:15)
[2020-10-23] MEDS ORDERED: Sodium Chloride 0.9% 1,000 ML IV SCH (14:15)
--- NOTE | 2020-10-23 14:30 | CR ---
Chest: Portable view of the chest was obtained. Comparison: Prior chest x-ray of 12/11/13. Heart has a mildly left ventricular configuration. Slight tortuosity of the thoracic aorta is seen. Lungs are clear with no acute parenchymal change. No acute abnormality is appreciated. Surgical clips are noted around the gastroesophageal junction. Impression: 1. Findings as noted above. 2. Nothing acute is appreciated. Diagnostic code #2
[2020-10-23] MEDS ORDERED: Heparin Sodium 5,000 Units/ML Vial IVPUSH ONE ×2 (16:06→16:07)
[2020-10-23] MEDS ORDERED: Nitroglycerin/D5W 25 MG/250 ML BOTTLE IV SCH (16:15)
[2020-10-23] MEDS ORDERED: Heparin Sodium/D5W 25,000 UNITS/500 ML BAG IV SCH (16:15)
[2020-10-23] MEDS ORDERED: Aluminum Hydroxide/Magnesium Hydroxide/Simethicone Susp 30 ML Cup PO ONE (18:23)
[2020-10-23] MEDS ORDERED: Famotidine 20 MG Tab PO ONE (18:24)
[2020-10-23 19:19] VITALS: BP 121/89; PULSE 68
== END 2020-10-23 18:29 ==
LOC: JD.ED 13:21
DX: I25.110 Atherosclerotic heart disease of native coronary artery with unstable angina pectoris (principal); E78.00 Pure hypercholesterolemia, unspecified; I10 Essential (primary) hypertension; I25.2 Old myocardial infarction; N40.0 Benign prostatic hyperplasia without lower urinary tract symptoms; Z20.822 Contact with and (suspected) exposure to COVID-19; Z88.8 Allergy status to other drugs, medicaments and biological substances; Z88.5 Allergy status to narcotic agent; Z88.4 Allergy status to anesthetic agent; Z79.82 Long term (current) use of aspirin; Z79.899 Other long term (current) drug therapy
CPT/HCPCS: 36415; 71045; 80053; 82553; 83735; 83880; 84484; 85025; 85610; 85730; 93005; 96365; 96366; 96368; 99285; A9270; J1644; J3490; J7030; U0002; 93010

== ENCOUNTER 2021-08-01 14:46 | Emergency (ER) | payer MEDICARE, BC ==
[2021-08-01 15:22] VITALS: BP 119/70; PULSE 78
== END 2021-08-01 17:53 | disposition home or self-care (01) ==
LOC: JD.ED 14:46
DX: U07.1 COVID-19 (principal); E78.00 Pure hypercholesterolemia, unspecified; I10 Essential (primary) hypertension; I25.2 Old myocardial infarction; N40.0 Benign prostatic hyperplasia without lower urinary tract symptoms; Z88.1 Allergy status to other antibiotic agents; Z88.5 Allergy status to narcotic agent; Z88.8 Allergy status to other drugs, medicaments and biological substances; Z88.4 Allergy status to anesthetic agent; Z79.82 Long term (current) use of aspirin; Z79.899 Other long term (current) drug therapy
CPT/HCPCS: 36415; 71045; 71045-26; 80053; 83735; 85025; 85379; 86140; 99284; 99284-25

== ENCOUNTER 2023-03-09 10:53 | Day surgery (SDC) | payer MEDICARE, BC ==
[~2023-03-09 10:53] MED LIST changes: -Lidocaine 1%/Sod Bicarbonate in NS 8.4% 1 ML Syringe IV PRN; +Sodium Chloride 0.9% 10 ML Syringe FLUSH SCH
[2023-03-09] MEDS ORDERED: Propofol 200 MG/20 ML SDV ONE (11:51)
[2023-03-09] MEDS ORDERED: fentaNYL 100 MCG/2 ML SDV ONE (11:52)
[2023-03-09] MEDS ORDERED: Lidocaine 1% 6 ML ONE (11:52)
[2023-03-09] MEDS ORDERED: Metoclopramide 10 MG/2 ML SDV ONE (11:55)
[2023-03-09] MEDS ORDERED: Ondansetron 4 MG/2 ML SDV ONE (11:55)
[2023-03-09 14:11] VITALS: PULSE 68
[2023-03-09 14:12] VITALS: BP 133/88
== END 2023-03-09 14:00 | disposition home or self-care (01) ==
LOC: JD.SDS 10:53
PROVIDERS: ATTEND Surgery
DX: D12.4 Benign neoplasm of descending colon (principal); K29.50 Unspecified chronic gastritis without bleeding; K44.9 Diaphragmatic hernia without obstruction or gangrene; K57.30 Diverticulosis of large intestine without perforation or abscess without bleeding; K21.00 Gastro-esophageal reflux disease with esophagitis, without bleeding; J30.9 Allergic rhinitis, unspecified; M19.90 Unspecified osteoarthritis, unspecified site; I25.10 Atherosclerotic heart disease of native coronary artery without angina pectoris; F32.A Depression, unspecified; M72.0 Palmar fascial fibromatosis [Dupuytren]; I10 Essential (primary) hypertension; E78.00 Pure hypercholesterolemia, unspecified; G47.00 Insomnia, unspecified; G25.81 Restless legs syndrome; G47.30 Sleep apnea, unspecified; Z86.010 Personal history of colon polyps; Z88.8 Allergy status to other drugs, medicaments and biological substances; Z88.5 Allergy status to narcotic agent; Z79.899 Other long term (current) drug therapy; Z79.82 Long term (current) use of aspirin; Z87.11 Personal history of peptic ulcer disease; Z87.891 Personal history of nicotine dependence; Z88.4 Allergy status to anesthetic agent
CPT/HCPCS: 00813; 99100; J2405; J2704; J2765; J3010; J3490; J7120

== ENCOUNTER 2024-05-15 08:24 | Day surgery (SDC) | payer MEDICARE, BC ==
[~2024-05-15 08:24] MED LIST changes: +Bupivacaine 0.5% 10 ML SDV ONE; -Lactated Ringers 1,000 ML IV SCH; +Tranexamic Acid 1,000 MG/10 ML Vial ONE
[2024-05-15] MEDS: Lactated Ringers 1,000 ML IV SCH (09:00)
[2024-05-15] MEDS ORDERED: Propofol 200 MG/20 ML SDV ONE ×4 (09:01→11:36)
[2024-05-15] MEDS ORDERED: Ondansetron 4 MG/2 ML SDV ONE (09:01)
[2024-05-15] MEDS ORDERED: dexmedeTOMIDine HCl 200 MCG/2 ML SDV ONE (09:07)
[2024-05-15] MEDS ORDERED: Ropivacaine 0.5% 5 MG/ML 30 ML SDV ONE (09:08)
[2024-05-15] MEDS: oxyCODONE ER 10 MG TAB.ER PO SCH (09:27)
[2024-05-15] MEDS: Pregabalin 25 MG Cap PO SCH (09:28)
[2024-05-15] MEDS: Acetaminophen 325 MG Tab PO SCH (09:28)
[2024-05-15] MEDS ORDERED: ceFAZolin 2 GM Vial ONE (10:29)
[2024-05-15] MEDS ORDERED: Lactated Ringers 1,000 ML ONE (10:39)
[2024-05-15] MEDS ORDERED: ePHEDrine 50 MG/ML SDV ONE (10:41)
[2024-05-15] MEDS ORDERED: fentaNYL 100 MCG/2 ML SDV IVPUSH PRN (11:21)
[2024-05-15] MEDS: Morphine 8 MG, EPINEPHrine 0.3 MG, Cefuroxime 750 MG, Sodium Chloride 0.9% 7.9 ML PRN (11:36)
[2024-05-15] MEDS: Vancomycin 1 GM SDV ONE (11:42)
[2024-05-15] MEDS: Triamcinolone Acetonide 40 MG/ML 1 ML SDV ONE (11:42)
[2024-05-15 15:14] VITALS: BP 130/88; PULSE 66
== END 2024-05-15 16:18 | disposition home or self-care (01) ==
LOC: JD.SDS 08:24
PROVIDERS: ATTEND Orthopaedic Surgery
DX: M17.0 Bilateral primary osteoarthritis of knee (principal); I25.10 Atherosclerotic heart disease of native coronary artery without angina pectoris; E78.5 Hyperlipidemia, unspecified; G47.33 Obstructive sleep apnea (adult) (pediatric); I10 Essential (primary) hypertension; E55.9 Vitamin D deficiency, unspecified; R73.03 Prediabetes; Z79.84 Long term (current) use of oral hypoglycemic drugs; Z79.82 Long term (current) use of aspirin; Z79.899 Other long term (current) drug therapy; Z88.8 Allergy status to other drugs, medicaments and biological substances; Z88.5 Allergy status to narcotic agent; Z95.5 Presence of coronary angioplasty implant and graft
CPT/HCPCS: 73560-26-LT; 73560-LT; 97110-GP; 97116-GP; 97161-GP; A9270-GY; C1713; C1776; J0171; J0665; J0690; J0697; J2270; J2405; J2704; J2795; J3301; J3370; J3490; J7120

== ENCOUNTER 2024-05-20 09:52 | Emergency (ER) | payer MEDICARE, BC ==
[2024-05-20 11:12] LABS: BASOPHILS PERCENT AUTO 0.4 % (0.0-1.0); EOSINOPHILS ABSOLUTE AUTO 0.1 K/mm3 (0.0-0.4); EOSINOPHILS PERCENT AUTO 1.2 % (0.0-6.0); HEMATOCRIT 39.2 % (42.0-52.0); HEMOGLOBIN 13.1 gm/dl (14.0-18.0); IMMATURE GRAN ABSOLUTE AUTO 0.03 K/mm3 (0.00-0.05); IMMATURE GRAN PERCENT AUTO 0.4 % (0.0-0.4); LYMPHOCYTES ABSOLUTE AUTO 1.7 K/mm3 (1.0-4.8); LYMPHOCYTES PERCENT AUTO 20.8 % (24.0-44.0); MEAN CORPUSCULAR HEMOGLOBIN 27.9 pg (28.0-32.0); MEAN CORPUSCULAR HGB CONC 33.4 g/dl (32.0-36.0); MEAN CORPUSCULAR VOLUME 83.4 fl (83.0-99.0); MEAN PLATELET VOLUME 10.4 fl (9.4-12.4); NEUTROPHILS ABSOLUTE AUTO 5.4 K/mm3 (1.8-7.7); NEUTROPHILS PERCENT AUTO 65.2 % (41.0-71.0); PLATELET COUNT,PLT 253 K/mm3 (150-400); WHITE BLOOD CELL COUNT,WBC 8.19 K/mm3 (3.9-11.3)
[2024-05-20] MEDS: Ondansetron 4 MG/2 ML SDV IVPUSH ONE ×2 (11:17→16:35)
[2024-05-20] MEDS: Sodium Chloride 0.9% 500 ML IV ONE (11:17)
[2024-05-20] MEDS: Sodium Chloride 0.9% 10 ML Syringe FLUSH PRN (11:17)
[2024-05-20 11:32] LABS: APPEARANCE,URINE CLEAR (Clear); BILIRUBIN,URINE NEGATIVE (Negative); COLOR,URINE YELLOW (Yellow); GLUCOSE,URINE NEGATIVE (Negative); KETONES,URINE NEGATIVE (Negative); LEUKOCYTE ESTERASE,URINE NEGATIVE (Negative); NITRITE,URINE NEGATIVE (Negative); OCCULT BLOOD,URINE NEGATIVE (Negative); PROTEIN,URINE 1+ (Negative); UROBILINOGEN,URINE >=8.0 (0.2-1.0)
[2024-05-20 11:42] LABS: BACTERIA,URINE FEW /hpf (FEW); MUCUS,URINE FEW /hpf (FEW); RBC,URINE 0-5 /hpf (0-5); SQUAMOUS EPITHELIAL CELLS,UR 0-5 /hpf (0-5); WBC,URINE 0-5 /hpf (0-5)
[2024-05-20 11:46] LABS: ALBUMIN 3.4 g/dl (3.4-5.0); ANION GAP 12.7 (5-15); BILIRUBIN TOTAL 1.4 mg/dL (0.2-1.0); CALCIUM 9.2 mg/dL (8.5-10.1); EST CRCL DRUG DOSING (CG) 61.75 mL/min; MAGNESIUM 2.1 mg/dL (1.8-2.4); POTASSIUM,K 3.7 mEq/L (3.5-5.1); PROTEIN TOTAL,TP 6.7 g/dl (6.4-8.2)
[2024-05-20] MEDS: Iopamidol 612 MG/ML 100 ML Bottle IVPUSH ONE (12:08)
[2024-05-20] MEDS: Ondansetron 4 MG Tab.DIS PO ONE (16:45)
[2024-05-20 17:42] VITALS: BP 153/100; PULSE 88
== END 2024-05-20 16:46 | disposition home or self-care (01) ==
LOC: JD.ED 09:52
DX: K59.00 Constipation, unspecified (principal); I25.10 Atherosclerotic heart disease of native coronary artery without angina pectoris; I25.2 Old myocardial infarction; I10 Essential (primary) hypertension; E78.00 Pure hypercholesterolemia, unspecified; K21.9 Gastro-esophageal reflux disease without esophagitis; M19.90 Unspecified osteoarthritis, unspecified site; Z96.652 Presence of left artificial knee joint; Z95.5 Presence of coronary angioplasty implant and graft; Z86.16 Personal history of COVID-19; Z88.4 Allergy status to anesthetic agent; Z88.5 Allergy status to narcotic agent; Z88.8 Allergy status to other drugs, medicaments and biological substances; Z79.82 Long term (current) use of aspirin; Z79.84 Long term (current) use of oral hypoglycemic drugs; Z79.899 Other long term (current) drug therapy
CPT/HCPCS: 36415; 74177; 80053; 81001; 83690; 83735; 85025; 96361; 96374; 99284; A9270; J2405; J3490; J7030; Q9967

== ENCOUNTER 2024-11-27 09:17 | Day surgery (SDC) | payer MEDICARE, BC ==
[2024-11-27] MEDS: Lactated Ringers 1,000 ML IV SCH (09:00)
[~2024-11-27 09:17] MED LIST changes: +Bupivacaine 0.25% 10 ML SDV ONE; -Bupivacaine 0.5% 10 ML SDV ONE; +Dexamethasone 4 MG/ML 5 ML MDV ONE; +Lidocaine 1% 10 ML MDV ONE; +Lidocaine 1% 5 ML VIAL ONE; +Ondansetron 4 MG/2 ML SDV ONE; -Sodium Chloride 0.9% 10 ML Syringe FLUSH PRN; -Sodium Chloride 0.9% 10 ML Syringe FLUSH SCH; -Tranexamic Acid 1,000 MG/10 ML Vial ONE; +dexmedeTOMIDine HCl 200 MCG/2 ML SDV ONE; +fentaNYL 250 MCG/5 ML SDV ONE; +propofoL 500 MG/50 ML 50 ML ONE
[2024-11-27] MEDS ORDERED: Sodium Chloride 0.9% 10 ML Syringe FLUSH PRN (09:25)
[2024-11-27] MEDS ORDERED: ceFAZolin 2 GM Vial ONE (10:16)
[2024-11-27] MEDS ORDERED: Propofol 200 MG/20 ML SDV ONE ×2 (10:30→10:45)
[2024-11-27] MEDS ORDERED: Acetaminophen/HYDROcodone 325-5 MG Tab PO PRN (10:30)
[2024-11-27] MEDS ORDERED: fentaNYL 100 MCG/2 ML SDV IVPUSH PRN (11:22)
[2024-11-27] MEDS: droPERidol 2.5 MG/ML SDV IV PRN (11:27)
[2024-11-27] MEDS: Bupivacaine 0.25% 10 ML SDV ONE (11:37)
[2024-11-27 12:15] VITALS: PULSE 55
[2024-11-27 13:17] VITALS: BP 129/85
[2024-11-27] MEDS ORDERED: Sodium Chloride 0.9% 10 ML Syringe FLUSH SCH (21:00)
== END 2024-11-27 13:47 | disposition home or self-care (01) ==
LOC: JD.SDS 09:17
PROVIDERS: ATTEND Orthopaedic Surgery
DX: D17.24 Benign lipomatous neoplasm of skin and subcutaneous tissue of left leg (principal); I10 Essential (primary) hypertension; K21.9 Gastro-esophageal reflux disease without esophagitis; I25.10 Atherosclerotic heart disease of native coronary artery without angina pectoris; E78.00 Pure hypercholesterolemia, unspecified; Z88.8 Allergy status to other drugs, medicaments and biological substances; Z88.5 Allergy status to narcotic agent; Z79.82 Long term (current) use of aspirin; Z79.899 Other long term (current) drug therapy
CPT/HCPCS: 27337; J0665; J0690; J1100; J1790; J2003; J2405; J2704; J3010; J7120; 88304